=== PATIENT | male | born 1945 | race Caucasian/White ===

== ENCOUNTER 2024-01-30 08:32 | Day surgery (SDC) | payer MEDICARE ==
[~2024-01-30 08:32] MED LIST: Acetaminophen 325 MG Tab PO PRN; Acetaminophen/Codeine 300-30 MG Tab PO PRN; Ondansetron 4 MG/2 ML SDV IVPUSH PRN; Sodium Chloride 0.9% 10 ML Syringe FLUSH PRN
[2024-01-30] MEDS: Proparacaine 0.5% Ophth Soln 15 ML Bottle EYELF ONE ×2 (08:54→09:33)
[2024-01-30] MEDS: Povidone-Iodine 5% Sterile Ophth Soln 30 ML Bottle EYELF ONE ×2 (08:55→09:33)
[2024-01-30] MEDS: Timolol Maleate 0.5% Ophth Soln 5 ML Bottle EYELF ONE (08:56)
[2024-01-30] MEDS: Tropicamide 1% Ophth Soln 15 ML Bottle EYELF ONE (08:56)
[2024-01-30] MEDS: Phenylephrine 10% Ophth Soln 5 ML Bot EYELF ONE (08:56)
[2024-01-30] MEDS: Moxifloxacin 0.5% Ophth Soln 3 ML Bottle EYELF ONE (08:57)
[2024-01-30] MEDS: Cataract Ophth Solution EYELF ONE (08:57)
[2024-01-30] MEDS: Lidocaine 1% 30 ML SDV ONE (09:32)
[2024-01-30] MEDS: Apraclonidine 0.5% Ophth Soln 5 ML Bot EYELF ONE (09:33)
[2024-01-30] MEDS: Diclofenac Sodium 0.1% Ophth Soln 5 ML Bottle EYELF ONE (09:33)
[2024-01-30] MEDS: Vancomycin 500 MG SDV EYELF ONE (09:34)
[2024-01-30] MEDS: Dexamethasone/Neomycin/Polymyxin B Ophth Oint 3.5 GM Tube EYELF ONE (09:34)
== END 2024-01-30 10:20 | disposition home or self-care (01) ==
LOC: DL.SDS 08:32
PROVIDERS: ATTEND Ophthalmology
DX: H25.812 Combined forms of age-related cataract, left eye (principal); Z87.891 Personal history of nicotine dependence; Z88.0 Allergy status to penicillin
CPT/HCPCS: A9270-GY; J3370; J3490

== ENCOUNTER 2024-02-20 09:30 | Day surgery (SDC) | payer MEDICARE ==
[2024-02-20] MEDS: Proparacaine 0.5% Ophth Soln 15 ML Bottle EYERT ONE ×2 (10:07→11:18)
[2024-02-20] MEDS: Povidone-Iodine 5% Sterile Ophth Soln 30 ML Bottle EYERT ONE ×2 (10:08→11:18)
[2024-02-20] MEDS: Moxifloxacin 0.5% Ophth Soln 3 ML Bottle EYERT ONE (10:08)
[2024-02-20] MEDS: Phenylephrine 10% Ophth Soln 5 ML Bot EYERT ONE (10:09)
[2024-02-20] MEDS: Tropicamide 1% Ophth Soln 15 ML Bottle EYERT ONE (10:09)
[2024-02-20] MEDS: Timolol Maleate 0.5% Ophth Soln 5 ML Bottle EYERT ONE (10:10)
[2024-02-20] MEDS: Cataract Ophth Solution EYERT ONE (10:10)
[2024-02-20] MEDS: Lidocaine 1% 30 ML SDV ONE (11:27)
[2024-02-20] MEDS: Vancomycin 500 MG SDV EYERT ONE (11:28)
[2024-02-20] MEDS: Diclofenac Sodium 0.1% Ophth Soln 5 ML Bottle EYERT ONE (11:33)
[2024-02-20] MEDS: Dexamethasone/Neomycin/Polymyxin B Ophth Oint 3.5 GM Tube EYERT ONE (11:34)
[2024-02-20] MEDS: Apraclonidine 0.5% Ophth Soln 5 ML Bot EYERT ONE (11:34)
== END 2024-02-20 12:15 | disposition home or self-care (01) ==
LOC: DL.SDS 09:30
PROVIDERS: ATTEND Ophthalmology
DX: H25.811 Combined forms of age-related cataract, right eye (principal); Z87.891 Personal history of nicotine dependence
CPT/HCPCS: 66984; A9270; J3370; J3490